=== PATIENT | male | born 1990 | race Caucasian/White ===

== ENCOUNTER → 2017-12-27 | Outpatient (CLI) | payer BC | LOC: COL.RAD 08:54 | DX: N50.3 Cyst of epididymis (principal); N50.89 Other specified disorders of the male genital organs; K40.90 Unilateral inguinal hernia, without obstruction or gangrene, not specified as recurrent; R10.31 Right lower quadrant pain ==

== ENCOUNTER → 2018-04-04 | Outpatient (CLI) | payer BC | LOC: COL.RAD 14:48 | DX: R06.02 Shortness of breath (principal); R07.9 Chest pain, unspecified ==

== ENCOUNTER → 2018-04-04 | Outpatient (CLI) | payer BC | LOC: COL.RAD 14:00 | DX: R74.8 Abnormal levels of other serum enzymes (principal); R89.9 Unspecified abnormal finding in specimens from other organs, systems and tissues; R76.8 Other specified abnormal immunological findings in serum | CPT/HCPCS: Q9967 ==